=== PATIENT | female | born 1945 | race Native Hawaiian/Other Pacific Islander ===

== ENCOUNTER 2021-07-11 22:40 | Emergency (ER) | payer OTHER ==
[~2021-07-11] VITALS: Ht 157.5 cm; Wt 65.8 kg
[2021-07-11 23:32] LABS: PLATELET COUNT 194 K/uL (152-353)
[2021-07-11 23:37] LABS: POTASSIUM 3.5 mmol/L (3.6-5.2)
[2021-07-12 00:22] VITALS: BP 132/78; TEMP 98.3
[2021-07-12] MEDS ORDERED: FLONASE AL50 MCG/ACT NAS (08:12)
[2021-07-12] MEDS ORDERED: GLYCERIN PR (08:14)
[2021-07-12] MEDS ORDERED: LORATADINE10 MG PO (08:15)
[2021-07-12] MEDS ORDERED: MAGNSUS68 PO (08:16)
[2021-07-12] MEDS ORDERED: OXYC5TAB53 PO (08:19)
[2021-07-12] MEDS ORDERED: TYLENOL325 MG PO (08:21)
[2021-07-12] MEDS ORDERED: ASPIRIN81 M2 PO (08:24)
[2021-07-12] MEDS ORDERED: LIPITOR20 MG PO (08:27)
[2021-07-12] MEDS ORDERED: BUSPIRONE10 MG PO (08:28)
[2021-07-12] MEDS ORDERED: DULOXETINE HCL20 MG PO (08:29)
[2021-07-12] MEDS ORDERED: FUROSEMIDE40 MG PO (08:31)
[2021-07-12] MEDS ORDERED: QUETIAPINE25 MG PO (08:31)
[2021-07-12] MEDS ORDERED: GABA300C2 PO (08:33)
[2021-07-12] MEDS ORDERED: ALBUSOL INH (08:34)
[2021-07-12] MEDS ORDERED: MAGNESIUM30 MG PO (08:35)
[2021-07-12] MEDS ORDERED: MELATONIN5 M2 PO (08:36)
[2021-07-12] MEDS ORDERED: METO25TA2 PO (08:37)
[2021-07-12] MEDS ORDERED: K-TABS10 MEQ PO (08:39)
[2021-07-12] MEDS ORDERED: THIA100T8 PO (08:40)
[2021-07-12] MEDS ORDERED: BAC 50-325-40 M1 TAB PO (08:45)
== END 2021-07-12 00:22 | disposition still patient (30) ==
LOC: ED 22:40
PROVIDERS: Hospitalist
DX: R45.851 Suicidal ideations (principal); F32.89 Other specified depressive episodes; F41.8 Other specified anxiety disorders; Z11.52 Encounter for screening for COVID-19; Z04.6 Encounter for general psychiatric examination, requested by authority
CPT/HCPCS: 80053; 85027; 87635; 93005; 99283; U0003